=== PATIENT | female | born 1980 | race African-American/Black ===

== ENCOUNTER 2020-01-04 | Emergency (ER) | payer MEDICAID ==
[~2020-01-04] MED LIST: AMOXICILLIN500 MG PO; LORTAB 10-325 M1 TAB PO
[2020-01-04] MEDS ORDERED: CYCLOBENZAPR5 MG PO ×2 (07:36)
[2020-01-04] MEDS ORDERED: MOTRIN400 MG PO ×2 (07:36)
[2020-01-04] MEDS ORDERED: VOLTAREN1%GEL TOP ×2 (07:36)
== END 2020-01-04 07:56 | disposition home or self-care (01) ==
DX: M25.521 Pain in right elbow (principal); F17.210 Nicotine dependence, cigarettes, uncomplicated

== ENCOUNTER 2020-03-05 21:37 | Emergency (ER) | payer MEDICAID ==
[~2020-03-05] VITALS: Ht 162.6 cm; Wt 81.8 kg
[~2020-03-05 21:37] MED LIST changes: +CYCLOBENZAPR5 MG PO; +MOTRIN400 MG PO; +VOLTAREN1%GEL TOP
[2020-03-05] MEDS ORDERED: KEFLEX500 MG PO (22:27)
[2020-03-05] MEDS ORDERED: ULTRAM50 MG PO (22:27)
[2020-03-05 22:29] VITALS: BP 136/89
== END 2020-03-05 22:30 | disposition home or self-care (01) ==
LOC: ED 21:37
DX: S90.822A Blister (nonthermal), left foot, initial encounter (principal); S90.821A Blister (nonthermal), right foot, initial encounter; F17.210 Nicotine dependence, cigarettes, uncomplicated; X58.XXXA Exposure to other specified factors, initial encounter; Y99.0 Civilian activity done for income or pay

== ENCOUNTER 2020-05-24 02:56 | Emergency (ER) | payer MEDICAID ==
[~2020-05-24] VITALS: Ht 162.6 cm; Wt 89.0 kg
[~2020-05-24 02:56] MED LIST changes: +KEFLEX500 MG PO; +ULTRAM50 MG PO
[2020-05-24] MEDS ORDERED: ORPHENADRINE100 MG PO (03:22)
[2020-05-24] MEDS ORDERED: VOLTAREN - GENE75 MG PO (03:22)
[2020-05-24 04:04] VITALS: BP 146/96
== END 2020-05-24 04:04 | disposition home or self-care (01) ==
LOC: ED 02:56
DX: S39.012A Strain of muscle, fascia and tendon of lower back, initial encounter (principal); F17.200 Nicotine dependence, unspecified, uncomplicated; X50.9XXA Other and unspecified overexertion or strenuous movements or postures, initial encounter